=== PATIENT | female | born 1955 | race Caucasian/White ===

== ENCOUNTER → 2017-04-10 | Outpatient (CLI) | payer BC, OTHER ==
[~2017-04-10] MED LIST: ATOR10TA88 PO; BACL10TA PO; COMPOUNDING; LORA-741 PO; LSN20 PO; MULT-506 PO; OMEG10002 PO; SERT50TA PO
[2017-04-10 12:36] LABS: ALT/SGPT 22 U/L (12-78); BLOOD UREA NITROGEN 15 mg/dl (7-18); BUN/CREATININE RATIO 20.4 (10-20); CARBON DIOXIDE 31 mmol/L (21-32); CHLORIDE 106 mmol/L (98-107); CHOLESTEROL 199 mg/dl (0-200); CREATININE 0.73 mg/dl (0.60-1.20); GLUCOSE 101 mg/dl (70-99); POTASSIUM 4.7 mmol/L (3.5-5.1); SODIUM 140 mmol/L (136-145); TRIGLYCERIDES 144 mg/dl (0-150); VERY LOW DENSITY LIPOPROT CALC 29 mg/dl
[2017-04-10 12:45] LABS: CHOLESTEROL/HDL RATIO 3.3; HDL CHOLESTEROL 60 mg/dl; LDL CHOLESTEROL CALCULATED 110 mg/dl; THYROID STIMULATING HORMONE 0.845 uIu/ml (0.300-4.500)
== END | disposition home or self-care (01) ==
LOC: C.LABPBG 07:57
PROVIDERS: ATTEND Family Medicine
DX: E78.00 Pure hypercholesterolemia, unspecified (principal); I10 Essential (primary) hypertension; E03.9 Hypothyroidism, unspecified

== ENCOUNTER → 2017-04-17 | Outpatient (CLI) | payer BC, OTHER | END | disposition home or self-care (01) | LOC: C.PAPS 09:27 | PROVIDERS: ATTEND Family Medicine | DX: Z01.411 Encounter for gynecological examination (general) (routine) with abnormal findings (principal); N95.2 Postmenopausal atrophic vaginitis ==

== ENCOUNTER → 2017-09-17 | Outpatient (CLI) | payer BC, OTHER ==
[~2017-09-17] MED LIST changes: +ATOR10TA82 PO; -ATOR10TA88 PO
== END | disposition home or self-care (01) ==
LOC: C.LABSPEC 12:01
PROVIDERS: ATTEND Family Medicine
DX: R39.9 Unspecified symptoms and signs involving the genitourinary system (principal)

== ENCOUNTER → 2017-10-14 | Outpatient (CLI) | payer BC, OTHER | END | disposition home or self-care (01) | LOC: C.LABPBG 15:57 | PROVIDERS: ATTEND Family Medicine | DX: R80.9 Proteinuria, unspecified (principal) ==

== ENCOUNTER → 2017-10-18 | Outpatient (CLI) | payer BC, OTHER ==
[2017-10-18 13:12] LABS: HEMOGLOBIN A1C 5.5 % (4.5-5.6)
[2017-10-18 13:17] LABS: ALT/SGPT 26 U/L (12-78); BLOOD UREA NITROGEN 15 mg/dl (7-18); CALCIUM 8.7 mg/dl (8.5-10.1); CARBON DIOXIDE 28 mmol/L (21-32); CHOLESTEROL 186 mg/dl (0-200); CREATININE 0.84 mg/dl (0.60-1.20); GLUCOSE 105 mg/dl (70-99); POTASSIUM 3.9 mmol/L (3.5-5.1); SODIUM 140 mmol/L (136-145)
[2017-10-18 13:22] LABS: LDL CHOLESTEROL CALCULATED 111 mg/dl
== END | disposition home or self-care (01) ==
LOC: C.LABPBG 07:51
PROVIDERS: ATTEND Family Medicine
DX: E03.9 Hypothyroidism, unspecified (principal); I10 Essential (primary) hypertension